=== PATIENT | male | born 1950 | race Caucasian/White ===

== ENCOUNTER 2018-10-02 09:51 | Emergency (ER) | payer MEDICARE ==
[~2018-10-02] VITALS: Ht 175.3 cm; Wt 90.7 kg
[2018-10-02 10:05] VITALS: BP 154/84
[2018-10-02 10:12] VITALS: BP 154/84
--- NOTE | 2018-10-02 10:13 | NUR ---
ARRIVAL PATIENT ARRIVED TO ED6 AMBULATORY, C/O OF HIS CATHETER PULLING, PATIENT STATES THE STAY THAT HOLD THE CATHETER TO HIS LEG IS OFF. CAME TO THE ED FOR EVAL.
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
== END 2018-10-02 10:17 | disposition home or self-care (01) ==
LOC: ER 09:51
DX: T83.028A Displacement of other urinary catheter, initial encounter (principal); Z90.49 Acquired absence of other specified parts of digestive tract; Z85.9 Personal history of malignant neoplasm, unspecified
CPT/HCPCS: 99281; 99284